=== PATIENT | male | born 1985 | race Hispanic/Latino ===

== ENCOUNTER 2017-06-13 09:51 | Emergency (ER) | payer OTHER ==
[2017-06-13] MEDS: KETOROLAC 60 MG/2 ML VIAL (J1885) IM (11:06)
== END 2017-06-13 11:33 | disposition home or self-care (01) ==
LOC: M ED 09:51
DX: G89.18 Other acute postprocedural pain (principal); M79.641 Pain in right hand
CPT/HCPCS: J1885

== ENCOUNTER 2017-09-17 11:02 | Day surgery (SDC) | payer OTHER ==
[~2017-09-17 11:02] MED LIST: PHENYLEPHRINE 2.5% OPHTH SOL 2ML OD; TROPICAMIDE 1% OPHTH SOLN 2ML OD
[2017-09-17] MEDS: PROPARACAINE 0.5% OPHTH SOL 15ML OD (11:45)
[2017-09-17] MEDS: OFLOXACIN 0.3 % (OCUFLOX) OPTH SOL 5ML OD (11:50)
[2017-09-17] MEDS: mitoMYcin 0.2 MG/VIAL KIT FOR OPHTHALMIC USE (J7315 PER 0.2MG) As Ordered ×2 (12:12→13:15)
[2017-09-17] MEDS ORDERED: MIDAZOLAM INJ 2 MG/2 ML VIAL (J2250) As Ordered (12:15)
[2017-09-17] MEDS ORDERED: fentaNYL 100 MCG/2 ML INJECTION (J3010) As Ordered (12:15)
[2017-09-17] MEDS ORDERED: PROPOFOL 200 MG/20 ML VIAL As Ordered ×2 (12:19→13:15)
[2017-09-17] MEDS ORDERED: LIDOCAINE 2% INJ 100 MG/5 ML SDV (FOR ANES.) As Ordered (12:19)
[2017-09-17] MEDS: LIDOCAINE 2% W/EPIN INJ 20ML **PRES FREE As Ordered (12:49)
[2017-09-17] MEDS: TOBRADEX OPHTH OINT 3.5 GM As Ordered (13:29)
[2017-09-17] MEDS ORDERED: ACETAMINOPHEN TAB 650MG DOSE (2X325MG) As Ordered (13:35)
[2017-09-17] MEDS: ACETAMINOPHEN TAB 650MG DOSE (2X325MG) PO (13:45)
[2017-09-17] MEDS ORDERED: LR 1,000 ML IV (13:45)
== END 2017-09-17 14:23 | disposition home or self-care (01) ==
LOC: M SDC 11:02
DX: H11.051 Peripheral pterygium, progressive, right eye (principal); Z79.899 Other long term (current) drug therapy
CPT/HCPCS: 65426

== ENCOUNTER 2017-11-14 20:53 | Emergency (ER) | payer OTHER ==
[2017-11-14] MEDS: KETOROLAC 60 MG/2 ML VIAL (J1885) IM (22:53)
== END 2017-11-14 23:18 | disposition home or self-care (01) ==
LOC: M ED 20:53
DX: S60.222A Contusion of left hand, initial encounter (principal); W23.0XXA Caught, crushed, jammed, or pinched between moving objects, initial encounter; Y92.099 Unspecified place in other non-institutional residence as the place of occurrence of the external cause; Y93.9 Activity, unspecified; Y99.9 Unspecified external cause status
CPT/HCPCS: J1885